=== PATIENT | female | born 1975 | race Caucasian/White ===

== ENCOUNTER → 2021-03-07 | Outpatient (CLI) | payer OTHER | LOC: CT 09:15 | DX: C50.919 Malignant neoplasm of unspecified site of unspecified female breast (principal); R91.8 Other nonspecific abnormal finding of lung field; K59.00 Constipation, unspecified | CPT/HCPCS: 71260; Q9967 ==

== ENCOUNTER → 2022-02-20 | Outpatient (CLI) | payer OTHER | LOC: NM 01-16 08:10 → CT 01-16 08:10 → NM 07:43 | DX: C50.919 Malignant neoplasm of unspecified site of unspecified female breast (principal); M89.9 Disorder of bone, unspecified | CPT/HCPCS: 78306; A9503 ==

== ENCOUNTER → 2022-02-21 | Outpatient (CLI) | payer OTHER | LOC: CT 12:53 | DX: C50.412 Malignant neoplasm of upper-outer quadrant of left female breast (principal); M48.8X6 Other specified spondylopathies, lumbar region; C79.51 Secondary malignant neoplasm of bone | CPT/HCPCS: 70470; 72128; 72131; Q9967 ==